=== PATIENT | female | born 1975 | race Caucasian/White ===

== ENCOUNTER → 2024-04-06 16:26 | Outpatient (REF) | payer BC, SELFPAY | LOC: RAD 16:26 | PROVIDERS: FAMILY PHYSICIAN Family Medicine | DX: R79.89 Other specified abnormal findings of blood chemistry (principal) | CPT/HCPCS: 76775 ==

== ENCOUNTER 2025-04-17 19:05 | Emergency (ER) | payer BC, SELFPAY ==
[2025-04-17 19:11] VITALS: BP 153/99
--- NOTE | 2025-04-17 20:10 | ED.GENMED ---
History of Present Illness
General
Chief Complaint: Foreign Body Ingestion
Source: patient
Exam Limitations: none
Time Seen by Provider: 04/17/25 20:09
Nursing documentation reviewed up to this point in time: agreed with
History of Present Illness
History of Present Illness:
49-year-old female presenting to the emergency department after she believes that she swallowed the tab of a cane. She claims that she took the tab off it fell into the cane but she still drank the drink. She felt something in her throat while
drinking out of the can think she may have swallowed the tab. Denies any pain or additional symptoms at this time. This was roughly an hour prior to arrival
Past History
Past History
ED Past Medical History: None
ED Past Surgical History: None
Social History
Tobacco: Non-smoker
Alcohol: Occasional
Drug: None
Personal:
Living: with family
Review of Systems
Review of Systems
Allergies reviewed?: Yes
All Other Systems: ROS reviewed and negative except as documented in HPI and ROS
Phy Exam
Physical Exam
Physical Exam:
GENERAL: Alert , in no apparent distress
EYE: pupils equal and reactive
NECK: Supple, no significant adenopathy.
ENT: o/p clr, mmm.
CARDIAC: Regular rate and rhythm .
LUNGS: Clear breath sounds bilaterally, no acute respiratory distress, no wheezes/rales/rhonchi
ABDOMEN: Soft, without focal tenderness, no r/g, no cvat
NEUROLOGICAL: Alert and oriented, no focal neuro deficits
SKIN: Warm and dry, skin intact.
MUSCULOSKELETAL: No edema, well perfused.
PSYCH: Normal and appropriate interaction.
Course
Orders/Labs/Results
Orders:
Orders
04/17/25 19:15
Abdomen Xray - 1 View [CR Abdomen - 1 View] Urgent
Comment:
Reason For Exam: foreign body
Vital Signs
Initial and Last Documented VS:
Initial Vital Signs
Temp Pulse Resp BP Pulse Ox
97.5 F 92 16 153/99 98
04/17/25 19:11 04/17/25 19:11 04/17/25 19:11 04/17/25 19:11 04/17/25 19:11
Last Documented Vital Signs
Temp Pulse Resp BP Pulse Ox
97.5 F 92 16 153/99 98
04/17/25 19:11 04/17/25 19:11 04/17/25 19:11 04/17/25 19:11 04/17/25 19:11
MDM/Problems Addressed
MDM/Problems Addressed:
49-year-old female presenting after believing that she may have swallowed a can tab. Here she is in no distress x-ray was performed that did not show any evidence of any metal foreign object. Stable for discharge at this time return precautions
given.
*Pulse Oximetry
SaO2: 98
Oxygen Mode of Delivery: Room air
Patient hypoxic: no (98)
*Critical Care Note
Total Time (30-74mins, 75-104mins- exclusive of procedures): Not Applicable
ED Attending Note
-
Portions of this chart may have been created with voice recognition software.� Occasional wrong word or��sound alike� substitutions may have occurred due to the inherent limitations of voice recognition software.
Discharge Plan
Departure
Patient Disposition: Home (Routine Discharge)
Date of Disposition: 04/17/25
Time of Disposition: 20:18
Patient with high blood pressure during this ER visit?: No
Condition: Good
Covid-19: Not Applicable
Discharge Problem:
Foreign body sensation, throat
Instructions: Swallowed Objects, Adult (DC)
Prescriptions:
No Action
No Meds [No Current Medications]
cephalexin [Keflex] 500 MG capsule
500 mg PO BID Qty: 20 0RF
tramadol [Ultram] 50 MG tablet
50 mg PO Q4HPRN PRN (Reason: pain) Qty: 6 0RF
Activity Restrictions/Additional Instructions:
You came to the emergency department today with concerns of potentially swelling a tab from a can. Here your x-ray did not show any evidence of this. Return for any worsening, new or concerning symptoms.
Interventions
Interventions:
*Risk Screen - Suicide Last Done: 04/17/25 19:11
*Neglect/Abuse Screening Last Done: 04/17/25 19:11
Discharge Date and Time
Print Language: PORTUGUESE
[2025-04-17 20:47] VITALS: BP 143/90
== END 2025-04-17 20:48 | disposition home or self-care (01) ==
LOC: EMR 19:05
PROVIDERS: EMERGENCY PHYSICIAN Emergency Medicine; FAMILY PHYSICIAN Family Medicine
DX: R09.A2 Foreign body sensation, throat (principal)
CPT/HCPCS: 99283; 74018

== ENCOUNTER → 2025-04-26 15:07 | Outpatient (REF) | payer BC, SELFPAY | LOC: RAD 15:07 | PROVIDERS: ATTENDING PHYSICIAN Otolaryngology; FAMILY PHYSICIAN Family Medicine | DX: T17.908A Unspecified foreign body in respiratory tract, part unspecified causing other injury, initial encounter (principal) | CPT/HCPCS: 71046; 74018 ==